=== PATIENT | male | born 1965 | race Two or more races ===

== ENCOUNTER 2018-02-10 09:20 | Emergency (ER) | payer SELFPAY ==
[~2018-02-10] VITALS: Ht 167.6 cm; Wt 90.0 kg
[2018-02-10] MEDS ORDERED: LEVETIRACETAM 1000MG/100ML 100 ML IV ONE (10:30)
[2018-02-10] MEDS ORDERED: LORAZEPAM 2MG/ML CPJ IV ONE ×2 (10:30→13:30)
[2018-02-10 11:11] LABS: HEMATOCRIT. 44.2 % (42.0-52.0); HEMOGLOBIN. 15.1 g/dL (14.0-18.0); MEAN CORPUSCULAR HEMOGLOBIN 34.3 pg (28.0-32.0); MEAN CORPUSCULAR VOLUME 100.5 fL (80.0-94.0); MEAN PLATELET VOLUME 9.5 fl (7.4-10.4); PLATELET 96 x1000/uL (130-400); RED CELL DISTRIBUTION WIDTH 18.4 % (11.6-14.6)
[2018-02-10 11:24] LABS: CHLORIDE 95 mEq/L (98-107)
[2018-02-10 11:26] LABS: PLATELET ESTIMATE DECREASED
[2018-02-10 11:49] LABS: ETHANOL BLOOD < 10 mg/dL
[2018-02-10 13:07] LABS: CLARITY URINE CLEAR (CLEAR); COLOR URINE ORANGE (YELLOW); KETONES URINE 1+ (NEGATIVE); LEUKOCYTE ESTERASE URINE 1+ (NEGATIVE); NITRITE URINE POSITIVE (NEGATIVE); OCCULT BLOOD URINE NEGATIVE (NEGATIVE); PROTEIN URINE 2+ (NEGATIVE); SPECIFIC GRAVITY URINE 1.036 (1.005-1.030)
[2018-02-10 14:01] LABS: *COCAINE SCREEN URINE NEGATIVE (NEGATIVE)
[2018-02-10 14:02] LABS: *AMPHETAMINES SCREEN URINE NEGATIVE (NEGATIVE); *BENZODIAZEPINES SCREEN URINE NEGATIVE (NEGATIVE); CANNABINOID URINE SCREEN NEGATIVE (NEGATIVE); METHADONE URINE SCREEN NEGATIVE (NEGATIVE); OPIATES URINE SCREEN NEGATIVE (NEGATIVE); PHENCYCLIDINE URINE SCREEN NEGATIVE (NEGATIVE)
[2018-02-10 14:09] LABS: *BARBITURATES SCREEN URINE NEGATIVE (NEGATIVE)
[2018-02-10 17:47] VITALS: BP 134/62
== END 2018-02-10 17:46 | disposition home or self-care (01) ==
LOC: ER 09:20
DX: F10.239 Alcohol dependence with withdrawal, unspecified (principal); R00.0 Tachycardia, unspecified; R41.82 Altered mental status, unspecified; Y90.0 Blood alcohol level of less than 20 mg/100 ml
CPT/HCPCS: 36415; 70450; 71045; 80053; 80305; 81003; 85025; 96365; 96375; 96376; 99285; G0482; J1953; J2060; Z7610